=== PATIENT | male | born 1970 | race African-American/Black ===

== ENCOUNTER 2017-07-22 16:03 | Emergency (ER) | payer BC, OTHER ==
[~2017-07-22] VITALS: Wt 75.0 kg
--- NOTE | 2017-07-22 17:28 | RADRPT ---
PROCEDURE: Left foot series CLINICAL INDICATION: Left foot pain. TECHNIQUE: AP, oblique, and lateral views of the left foot were obtained. COMPARISON: None FINDINGS: No acute fracture or dislocations are seen. The osseous structures are well mineralized. Very mild degenerative changes in the first MTP joint is seen. The remaining articular surfaces are normal. No soft tissue abnormalities are seen. IMPRESSION: 1. No evidence of acute abnormality. 2. 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 RPTAT: HPNM Physician Den Date Time Electronically viewed and signed by Masoud Marley Physician on 07/22/2017 17:28 /
--- NOTE | 2017-07-22 17:48 | ERD ---
ER Documentation Chief Complaint Date/Time DATE: 07/22/17 TIME: 17:42 Chief Complaint left foot pain/swelling, no injury HPI This is a 47-year-old male, with past medical history for insulin-dependent diabetes mellitus, presenting to the emergency department for left foot pain and swelling on and off for 1 month. Patient denies any trauma or injury. No laceration or erythema. No warmth or drainage. No fevers or chills. Patient states he checks his blood glucose at home and blood sugars are usually 170-180. ROS All systems reviewed and are negative except as per history of present illness. Allergies Allergies: Coded Allergies: No Known Allergy (Unverified , 07/22/17) PMhx/Soc Medical and Surgical Hx: pt denies Medical Hx, pt denies Surgical Hx History of Surgery: No Anesthesia Reaction: No Hx Neurological Disorder: No Hx Respiratory Disorders: No Hx Cardiac Disorders: No Hx Psychiatric Problems: No Hx Miscellaneous Medical Probl: No Hx Alcohol Use: No Hx Substance Use: No Hx Tobacco Use: No Smoking Status: Never smoker Physical Exam Vitals Vital Signs Date Time Temp Pulse Resp B/P Pulse Ox O2 Delivery O2 Flow Rate FiO2 07/22/17 16:10 97.8 96 18 154/72 99 Physical Exam Const: alert, oriented to person place and time Head: Atraumatic Eyes: Normal Conjunctiva ENT: Normal External Ears, Nose and Mouth. Neck: Full range of motion..~ No meningismus. Resp: Clear to auscultation bilaterally Cardio: Regular rate and rhythm, no murmurs Abd: Soft, non tender, non distended. Normal bowel sounds Skin: generalized bruising to bilateral lower extremities. Back: No midline or flank tenderness Ext: mild edema to dorsum of left foot. pedal pulses are palpable 2+. Sensation fully intact. Capillary refill less than 3 seconds. No laceration or erythema. No warmth or drainage. no lesions. Neur: Awake and alert Psych: Normal Mood and Affect Results 24 hrs Laboratory Tests Test 07/22/17 17:36 Bedside Glucose 193mg/dL [facility]/[address] [address] Radiology Main Line: [phone] DIAGNOSTIC IMAGING REPORT Patient: HÉCTOR BENITEZ : 1970 Age: 47 Sex: M MR #: [id number] DOS: 07/22/17 1733 Ordering MD: DIGNA CARPENTER NP Location: [facility] Room/Bed: PROCEDURE: US Lower extremity Venous. CLINICAL INDICATION: tingling and intermittent swelling to left lower extremity TECHNIQUE: Multiple sonographic images of the left lower extremity deep venous system was obtained utilizing grayscale, color-flow, compressive sonography and doppler imaging with augmentation. The images were reviewed on a PACS workstation. COMPARISON: None. FINDINGS: There is normal compressibility and flow within the left common femoral, deep femoral, superficial femoral and popliteal veins. The deep veins the calf were incompletely visualized. IMPRESSION: No sonographic evidence for deep venous thrombosis in the left lower extremity. [place] [address] Radiology Main Line: [phone] DIAGNOSTIC IMAGING REPORT Patient: HÉCTOR BENITEZ : 1970 Age: 47 Sex: M MR #: [id number] DOS: 07/22/17 1642 Ordering MD: DIGNA CARPENTER NP Location: [facility] Room/Bed: PROCEDURE: Left foot series CLINICAL INDICATION: Left foot pain. TECHNIQUE: AP, oblique, and lateral views of the left foot were obtained. COMPARISON: None FINDINGS: No acute fracture or dislocations are seen. The osseous structures are well mineralized. Very mild degenerative changes in the first MTP joint is seen. The remaining articular surfaces are normal. No soft tissue abnormalities are seen. IMPRESSION: 1. No evidence of acute abnormality. 2. 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 MDM: This is a 47-year-old male presenting to the emergency department for pain and swelling of left foot on and off for 1 month. Patient is an insulin- dependent diabetic. Patient states his blood glucose is normally 170-180 at home. Patient states he has been to his primary care provider and r[facility] for this problem. Patient states he has intermittent tingling pain to left foot. Patient states he has intermittent swelling that improves during the day and worse at night. X-ray right foot reviewed by radiologist as No evidence of acute abnormality. 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 Accu-Chek is 193. US left leg \no sonographic evidence for deep venous thrombosis in the left lower extremity. Low suspicion for osteomyelitis or cellulitis. Differential diagnosis includes but not limited to foot sprain, diabetic neuropathy vs peripheral neuropathy. Patient is appropriate for outpatient management and instructed to follow-up with PCP in the next 2-3 days for reassessment and additional management. Return to ED for any high fever, chest pain, difficulty breathing, shortness breath, wheezing, vomiting, diarrhea, abdominal pain or any new or worsening symptoms. Patient verbalizes understanding. All questions answered at discharge. Disclaimer: Inadvertent spelling and grammatical errors are likely due to EHR/ dictation software use and do not reflect on the overall quality of patient care. Also, please note that the electronic time recorded on this note does not necessarily reflect the actual time of the patient encounter. Departure Diagnosis: Primary Impression: Foot pain Laterality: left Qualified Code: M79.672 - Left foot pain Condition: Stable DIGNA ASHRAF NP Jul 22, 2017 17:48
--- NOTE | 2017-07-22 18:10 | RADRPT ---
PROCEDURE: US Lower extremity Venous. CLINICAL INDICATION: tingling and intermittent swelling to left lower extremity TECHNIQUE: Multiple sonographic images of the left lower extremity deep venous system was obtained utilizing grayscale, color-flow, compressive sonography and doppler imaging with augmentation. The images were reviewed on a PACS workstation. COMPARISON: None. FINDINGS: There is normal compressibility and flow within the left common femoral, deep femoral, superficial f emoral and popliteal veins. The deep veins the calf were incompletely visualized. IMPRESSION: No sonographic evidence for deep venous thrombosis in the left lower extremity. Physician Sandra Date Time Electronically viewed and signed by Physician Sandra on 07/22/2017 18:10 ML/
== END 2017-07-22 19:19 | disposition home or self-care (01) ==
LOC: FTE 16:03
DX: M79.672 Pain in left foot (principal)
CPT/HCPCS: 73630; 82962; 93971; Z7502

== ENCOUNTER 2018-06-20 12:12 | Emergency (ER) | END 2018-06-20 19:07 | disposition short-term general hospital (02) ==